=== PATIENT | female | born 2000 | race Caucasian/White ===

== ENCOUNTER 2021-07-13 06:52 | Emergency (ER) | payer MEDICAID ==
[~2021-07-13] VITALS: Ht 167.6 cm; Wt 79.5 kg
[2021-07-13 07:04] VITALS: BP 136/88
[2021-07-13] MEDS ORDERED: AMOXICILLIN/K CLAV 875/125MG TABLET. PO ONE (07:15)
[2021-07-13] MEDS ORDERED: KETOROLAC 60 MG/2 ML VIAL. IM ONE (07:15)
[2021-07-13] MEDS ORDERED: HYDROcodone/APAP 5/325MG 1 TAB TABLET PO ONE (07:15)
[2021-07-13] MEDS ORDERED: AZEL205.2 NS (07:34)
[2021-07-13] MEDS ORDERED: AMOX1TAB11 PO (07:34)
[2021-07-13] MEDS ORDERED: ACET1TAB33 PO (07:34)
--- NOTE | 2021-07-13 07:35 | PHYS DOC ---
Past History Past Surgical History: Appendectomy, , Other Additional Past Surgical Histo: left ankle hardware Alcohol Use: None General Adult EDM: Chief Complaint: EARACHE/EAR PAIN HPI: HPI: Patient is a 21-year-old female coming in for right ear pain. Pain woke her up about 3 hours prior to arrival. Patient states she did not have the pain when she went to bed she has been congested and had some pressure in her ear. Denies any drainage from the ear. Says she has some muffled hearing. Significant history of ear infections or tubes. Has a history of type 1 diabetes but says blood sugars have been well controlled. Review of Systems: Review of Systems: All other systems within normal limits except for as noted in the HPI Current Medications: Current Meds: Current Medications Medications (Trade) Dose Ordered Sig/Evaristo Start Time Stop Time Status Last Admin Dose Admin Acetaminophen/ Hydrocodone Bitart (Lortab 5/325) 1 tab 1X ONCE 07/13/21 07:15 07/13/21 07:17 DC 07/13/21 07:21 1 TAB Amoxicillin/ Clavulanate Potassium (Augmentin 875/ 125mg) 1 tab 1X ONCE 07/13/21 07:15 07/13/21 07:17 DC 07/13/21 07:21 1 TAB Ketorolac Tromethamine (Toradol Im) 60 mg 1X ONCE 07/13/21 07:15 07/13/21 07:17 DC 07/13/21 07:15 60 MG Allergies: Allergies: Allergies Coded Allergies Type Severity Reaction Last Updated Verified No Known Drug Allergies 07/13/21 No Physical Exam: PE: Constitutional: Well developed, well nourished, no acute distress, non-toxic appearance. [] HENT: Normocephalic, atraumatic, bilateral external ears normal, nose normal. Right TM bulging with purulent fluid behind [] Eyes: PERRLA, conjunctiva normal, no discharge. [] Neck: No rigidity, supple, no stridor. [] Cardiovascular: Regular rate and rhythm, brisk cap refill [] Lungs & Thorax: Non labored symmetric respirations, no tachypnea or respiratory distress [] Abdomen: Soft, nondistended. Skin: Warm, dry, no erythema, no rash. [] Back: Unremarkable Extremities: No deformities, range of motion grossly intact, no lower extremity edema [] Neurologic: Alert and oriented X 3, no focal deficits noted. [] Psychologic: Affect normal, judgement normal, mood normal. [] Current Patient Data: Vital Signs: Vital Signs Date Time Temp Pulse Resp B/P (MAP) Pulse Ox O2 Delivery O2 Flow Rate FiO2 07/13/21 07:21 18 99 07/13/21 07:04 97.9 95 136/88 (104) Room Air EKG: EKG: [] Radiology/Procedures: Radiology/Procedures: [] Heart Score: C/O Chest Pain: No Risk Factors: Risk Factors: DM, Current or recent (<one month) smoker, HTN, HLP, family history of CAD, obesity. Risk Scores: Score 0 - 3: 2.5% MACE over next 6 weeks - Discharge Home Score 4 - 6: 20.3% MACE over next 6 weeks - Admit for Clinical Observation Score 7 - 10: 72.7% MACE over next 6 weeks - Early Invasive Strategies Course & Med Decision Making: Course & Med Decision Making Pertinent Labs and Imaging studies reviewed. (See chart for details) [] Dragon Disclaimer: Dragon Disclaimer: This electronic medical record was generated, in whole or in part, using a voice recognition dictation system. Departure Departure: Impression: Primary Impression: Otitis media, right Disposition: 01 HOME / SELF CARE / HOMELESS Condition: STABLE Referrals: PCP,NO (PCP) Patient Instructions: Otitis Media, Adult Scripts Acetaminophen With Codeine (ACETAMINOPHEN-COD #3 TABLET) 1 Each Tablet 1 TAB PO PRN Q6HRS PRN for PAIN for 3 Days, #10 TAB Prov: JUSTINE EDWARDS MD 07/13/21 Amoxicillin/Potassium Clav (AMOX TR-K CLV 875-125 MG TAB) 1 Each Tablet 1 TAB PO BID for antibiotic, #20 TAB Prov: JUSTINE EDWARDS MD 07/13/21 Azelastine HCl (Azelastine HCl) 205.5 Mcg/0.137 Ml [place].pump 2 SPR NS BID PRN for CONGESTION for 30 Days, #30 ML 0 Refills Prov: JUSTINE EDWARDS MD 07/13/21 JUSTINE EDWARDS MD Jul 13, 2021 07:35
== END 2021-07-13 07:41 | disposition home or self-care (01) ==
LOC: ER 06:52
DX: H66.91 Otitis media, unspecified, right ear (principal); E10.8 Type 1 diabetes mellitus with unspecified complications
CPT/HCPCS: 96372; 99283; J1885